=== PATIENT | male | born 1980 | race Hispanic/Latino ===

== ENCOUNTER 2020-08-13 13:33 | Emergency (ER) | payer SELFPAY ==
[~2020-08-13] VITALS: Ht 157.5 cm; Wt 63.6 kg
[2020-08-13] MEDS ORDERED: KEFLEX500 M1 PO (14:11)
[2020-08-13] MEDS ORDERED: ALLEGRA180 MG PO (14:11)
[2020-08-13 15:13] VITALS: BP 138/89
== END 2020-08-13 15:13 | disposition home or self-care (01) | DRG 603 ==
LOC: ED 13:33
DX: L01.00 Impetigo, unspecified (principal)